=== PATIENT | male | born 1970 | race Caucasian/White ===

== ENCOUNTER 2017-06-27 07:06 | Day surgery (SDC) | payer OTHER ==
[2017-06-26 09:24] VITALS: BMI 22.8
[2017-06-27 07:29] VITALS: TEMP 97.6
[2017-06-27] MEDS ORDERED: PROPOFOL 20 ML ONE (08:58)
[2017-06-27] MEDS ORDERED: LIDOCAINE HCL 1% PRESERVATIVE FREE - 30ML VIAL IJ ONE (09:10)
[2017-06-27] MEDS ORDERED: BETAMET ACET/BETAMET NA PH 30 MG/5 ML VIAL IM ONE (09:10)
[2017-06-27] MEDS ORDERED: IOHEXOL 180 MG/1 ML ML IJ ONE (09:10)
[2017-06-27] MEDS ORDERED: BUPIVACAINE HCL/PF 0.25% (2.5MG/ML) 10 ML VIAL IJ ONE (09:10)
[2017-06-27 10:28] VITALS: BP 122/74; PULSE 77
--- NOTE | 2017-06-27 15:00 | PROC ---
Procedure Note Procedure: Date of service: 06/27/2017 Preoperative Diagnosis: Low back pain and lumbar radiculopathy on Left Postoperative Diagnosis: Same Procedure Performed: Lumbar Epidural Steroid Injection (LESI) on Left L5-S1 with dye under Fluoroscopy Anesthesia: Local / MAC Anesthesiologist: Procedure: I discussed with the patient in detail about the risks, benefits, and alternatives to treatment not only limited to infection, headache, numbness , weakness, and injury to nerves, blood vessels and muscles. The patient understood, agreed and signed the written consent. The patient was placed in the prone position with the head, abdomen and legs supported with the pillows. The lumbosacral area was prepped and draped with Betadine times three in a sterile fashion. Lumbar vertebrae were identified under the C-arm. At L5-S1 level on the Left side, 3 ml of 1 % Lidocaine was infiltrated into the skin and subcutaneous tissue. A 3 inch, #20 gauge Tuohy needle was advanced to the epidural space with loss of resistance technique under fluoroscopic guidance. Aspiration was negative for cerebrospinal fluid and blood. 2ml of Omnipaque ( radio-opaque dye) was injected to confirm the tip of the needle into epidural space and spread of dye. There was no CSF or vascular spread. The spread of dye was noted cranially and caudally on epidurogram. Aspiration was done again which was negative. A solution of 2.5 ml of Celestone, 2 .5 ml of 0.25% Marcaine and a total of 5 ml was injected slowly. While Tuohy needle was withdrawn 2.0 ml of 1 % Lidocaine was infiltrated. Bleeding was checked. Betadine was wiped off. A sterile bandage was placed. The patient tolerated the procedure well. There were no immediate complications. The patient was transferred to the recovery room. The patient was observed for some time and discharged as per ASU criteria. The patient was told to apply ice at the injection site. Follow up appointment was given and also call my office at . If there is any problem, call my office or report to Emergency Room. Aly Castro M.D.
== END 2017-06-27 10:25 | disposition home or self-care (01) ==
LOC: JASU-SURG 07:06
PROVIDERS: ATTEND Physical Medicine & Rehabilitation
PROC: 3E0R33Z Introduction of Anti-inflammatory into Spinal Canal, Percutaneous Approach (ICD-10-PCS; 2017-06-27)
PROC: B01BYZZ Fluoroscopy of Spinal Cord using Other Contrast (ICD-10-PCS; 2017-06-27)
PROC: 3E0R3BZ Introduction of Anesthetic Agent into Spinal Canal, Percutaneous Approach (ICD-10-PCS; principal; 2017-06-27 08:30)
DX: M54.17 Radiculopathy, lumbosacral region (principal); M54.5 Low back pain
CPT/HCPCS: 76000-TC

== ENCOUNTER 2020-06-12 06:05 | Day surgery (SDC) | payer OTHER ==
[2020-06-11 13:50] VITALS: BMI 22.6
[2020-06-12] MEDS ORDERED: IOHEXOL 180 MG/1 ML ML IJ ONE (14:10)
[2020-06-12] MEDS ORDERED: LIDOCAINE HCL 1% PRESERVATIVE FREE - 30ML VIAL INF ONE (14:10)
[2020-06-12] MEDS ORDERED: DEXAMETHASONE SOD PHOSPHATE 10 MG/1 ML VIAL IM ONE (14:10)
[2020-06-12 15:11] VITALS: BP 135/89; PULSE 71; TEMP 98
== END 2020-06-12 14:45 | disposition home or self-care (01) ==
LOC: JASU-SURG 06:05
PROVIDERS: ATTEND Pain Medicine Pain Medicine
PROC: 3E0R33Z Introduction of Anti-inflammatory into Spinal Canal, Percutaneous Approach (ICD-10-PCS; 2020-06-12)
PROC: B01BYZZ Fluoroscopy of Spinal Cord using Other Contrast (ICD-10-PCS; 2020-06-12)
PROC: 3E0R3BZ Introduction of Anesthetic Agent into Spinal Canal, Percutaneous Approach (ICD-10-PCS; principal; 2020-06-12 14:00)
DX: M47.816 Spondylosis without myelopathy or radiculopathy, lumbar region (principal)
CPT/HCPCS: 76000-TC-FY; J1100

== ENCOUNTER 2020-11-02 04:21 | Day surgery (SDC) | payer OTHER ==
[2020-10-30 09:21] VITALS: BMI 24.2
[2020-11-02 14:16] VITALS: TEMP 98.9
[2020-11-02] MEDS ORDERED: ACETAMINOPHEN 325 MG TABLET (FP) ONE (15:14)
[2020-11-02 15:19] VITALS: BP 136/83; PULSE 75
== END 2020-11-02 15:45 | disposition home or self-care (01) ==
LOC: JRADIR 04:21
PROVIDERS: ATTEND Family Medicine Geriatric Medicine
PROC: 0BBF3ZX Excision of Right Lower Lung Lobe, Percutaneous Approach, Diagnostic (ICD-10-PCS; principal; 2020-11-02)
DX: C34.31 Malignant neoplasm of lower lobe, right bronchus or lung (principal)
CPT/HCPCS: 32408; 71046-TC-FY; 88305-TC

== ENCOUNTER 2021-04-02 07:15 | Day surgery (SDC) | payer OTHER ==
[2021-04-02 13:04] LABS: BASO % 0.6 % (0-2.0); EOS % 3.1 % (0-4.5); HEMATOCRIT 37.7 % (35.4-49); MCH 34.3 pg (25.7-33.7); MCHC 34.4 g/dl (32.0-35.9); MEAN CELL VOLUME 99.8 fl (80-96); MEAN PLT VOLUME 7.2 fl (7.5-11.1); MONO % 11.1 % (3.8-10.2); NEUT % 64.2 % (42.8-82.8); PLATELET COUNT 231 10^3/uL (134-434); RBC 3.77 M/mm3 (4.00-5.60); RDW 12.9 % (11.9-15.9); WHITE BLOOD COUNT 9.3 K/mm3 (4.0-10.0)
[2021-04-02 13:24] LABS: CALCIUM 9.4 mg/dL (8.5-10.1)
[2021-04-02 13:25] LABS: ALBUMIN 3.6 g/dl (3.4-5.0); BLOOD UREA NITROGEN 7.4 mg/dL (7-18)
[2021-04-02 13:28] LABS: CREATININE 0.8 mg/dL (0.55-1.3)
[2021-04-02 13:30] LABS: BILIRUBIN,TOTAL 0.6 mg/dL (0.2-1)
[2021-04-02 13:54] LABS: MAGNESIUM 2.1 mg/dL (1.8-2.4)
[2021-04-02] MEDS ORDERED: DENOSUMAB 120 MG/1.7 ML VIAL SQ ONE (14:00)
[2021-04-02 16:13] VITALS: BP 109/71; PULSE 73; TEMP 98.3
== END 2021-04-02 14:20 | disposition home or self-care (01) ==
LOC: JONCCHEMO 07:15
PROVIDERS: ATTEND Internal Medicine Hematology & Oncology
PROC: 3E013GC Introduction of Other Therapeutic Substance into Subcutaneous Tissue, Percutaneous Approach (ICD-10-PCS; principal; 2021-04-02)
DX: C34.31 Malignant neoplasm of lower lobe, right bronchus or lung (principal); C79.31 Secondary malignant neoplasm of brain; Z76.89 Persons encountering health services in other specified circumstances
CPT/HCPCS: 36415; 80053; 83735; 85025; 96372; J0897

== ENCOUNTER → 2021-05-19 | Day surgery (SDC) | payer OTHER ==
[~2021-05-19] MED LIST: DENOSUMAB 120 MG/1.7 ML VIAL SQ ONE
[2021-05-19 11:50] LABS: BASO % 0.4 % (0-2.0); EOS % 5.7 % (0-4.5); HEMATOCRIT 37.2 % (35.4-49); HEMOGLOBIN 12.6 GM/dL (11.7-16.9); LYMPH % 26.1 % (8-40); MCH 32.1 pg (25.7-33.7); MCHC 33.8 g/dl (32.0-35.9); MEAN PLT VOLUME 7.5 fl (7.5-11.1); MONO % 13.3 % (3.8-10.2); NEUT % 54.5 % (42.8-82.8); PLATELET COUNT 269 10^3/uL (134-434); RBC 3.91 M/mm3 (4.00-5.60); RDW 13.7 % (11.9-15.9); WHITE BLOOD COUNT 7.7 K/mm3 (4.0-10.0)
[2021-05-19 12:07] LABS: CALCIUM 8.8 mg/dL (8.5-10.1)
[2021-05-19 12:08] LABS: ALBUMIN 3.1 g/dl (3.4-5.0); BLOOD UREA NITROGEN 8.4 mg/dL (7-18)
[2021-05-19 12:11] LABS: CREATININE 0.7 mg/dL (0.55-1.3)
[2021-05-19 12:13] LABS: BILIRUBIN,TOTAL 0.6 mg/dL (0.2-1)
== END | disposition home or self-care (01) ==
LOC: JONCCHEMO 07:28
PROVIDERS: ATTEND Internal Medicine Hematology & Oncology
DX: Z53.8 Procedure and treatment not carried out for other reasons (principal)
CPT/HCPCS: 36415; 80053; 85025; 93005; 93010

== ENCOUNTER 2021-06-09 10:06 | Day surgery (SDC) | payer OTHER ==
[2021-06-09 10:53] LABS: BASO % 0.7 % (0-2.0); EOS % 4.2 % (0-4.5); HEMATOCRIT 37.2 % (35.4-49); HEMOGLOBIN 12.6 GM/dL (11.7-16.9); LYMPH % 24.6 % (8-40); MEAN CELL VOLUME 94.2 fl (80-96); MEAN PLT VOLUME 7.5 fl (7.5-11.1); MONO % 13.6 % (3.8-10.2); NEUT % 56.9 % (42.8-82.8); PLATELET COUNT 283 10^3/uL (134-434); RBC 3.95 M/mm3 (4.00-5.60); RDW 14.5 % (11.9-15.9); WHITE BLOOD COUNT 9.6 K/mm3 (4.0-10.0)
[2021-06-09 11:18] LABS: BLOOD UREA NITROGEN 7.9 mg/dL (7-18); CALCIUM 8.7 mg/dL (8.5-10.1)
[2021-06-09 11:19] LABS: ALBUMIN 3.2 g/dl (3.4-5.0)
[2021-06-09 11:21] LABS: CREATININE 0.7 mg/dL (0.55-1.3)
[2021-06-09 11:23] LABS: BILIRUBIN,TOTAL 0.4 mg/dL (0.2-1)
[2021-06-09] MEDS ORDERED: DENOSUMAB 120 MG/1.7 ML VIAL SQ ONE (11:30)
[2021-06-09 15:56] VITALS: BP 98/63; PULSE 74
[2021-06-09 15:57] VITALS: TEMP 98
== END 2021-06-09 12:40 | disposition home or self-care (01) ==
LOC: JONCCHEMO 10:06 → EDSTATUS 10:06 → JONCCHEMO 12:40
PROVIDERS: ATTEND Internal Medicine Hematology & Oncology
PROC: 3E013GC Introduction of Other Therapeutic Substance into Subcutaneous Tissue, Percutaneous Approach (ICD-10-PCS; principal; 2021-06-09)
DX: C34.31 Malignant neoplasm of lower lobe, right bronchus or lung (principal); C79.31 Secondary malignant neoplasm of brain; Z76.89 Persons encountering health services in other specified circumstances
CPT/HCPCS: 36415; 80053; 83615; 83735; 84439; 84443; 85025; 87517; 96372; J0897

== ENCOUNTER 2021-07-07 07:08 | Day surgery (SDC) | payer OTHER ==
[2021-07-07] MEDS ORDERED: DENOSUMAB 120 MG/1.7 ML VIAL SQ ONE (10:00)
[2021-07-07 14:44] LABS: BASO % 0.7 % (0-2.0); EOS % 5.1 % (0-4.5); HEMATOCRIT 37.9 % (35.4-49); HEMOGLOBIN 12.9 GM/dL (11.7-16.9); LYMPH % 27.4 % (8-40); MCH 31.6 pg (25.7-33.7); MEAN CELL VOLUME 92.9 fl (80-96); MEAN PLT VOLUME 7.7 fl (7.5-11.1); MONO % 8.9 % (3.8-10.2); NEUT % 57.9 % (42.8-82.8); PLATELET COUNT 241 10^3/uL (134-434); RBC 4.08 M/mm3 (4.00-5.60); RDW 14.4 % (11.9-15.9); WHITE BLOOD COUNT 7.6 K/mm3 (4.0-10.0)
[2021-07-07 15:08] LABS: ALBUMIN 3.6 g/dl (3.4-5.0); BLOOD UREA NITROGEN 6.2 mg/dL (7-18); CALCIUM 8.8 mg/dL (8.5-10.1)
[2021-07-07 15:12] LABS: CREATININE 0.8 mg/dL (0.55-1.3)
[2021-07-07 15:13] LABS: BILIRUBIN,TOTAL 0.8 mg/dL (0.2-1)
[2021-07-07 19:23] VITALS: BP 97/70; PULSE 68; TEMP 97.8
== END 2021-07-07 14:30 | disposition home or self-care (01) ==
LOC: JONCCHEMO 07:08
PROVIDERS: ATTEND Internal Medicine Hematology & Oncology
PROC: 3E013GC Introduction of Other Therapeutic Substance into Subcutaneous Tissue, Percutaneous Approach (ICD-10-PCS; principal; 2021-07-07)
DX: C34.31 Malignant neoplasm of lower lobe, right bronchus or lung (principal); C79.31 Secondary malignant neoplasm of brain; Z76.89 Persons encountering health services in other specified circumstances
CPT/HCPCS: 36415; 80053; 85025; 96372; J0897

== ENCOUNTER 2021-08-04 07:18 | Day surgery (SDC) | payer OTHER ==
[2021-08-04] MEDS ORDERED: DENOSUMAB 120 MG/1.7 ML VIAL SQ ONE (10:00)
[2021-08-04 12:11] LABS: BASO % 0.7 % (0-2.0); EOS % 3.2 % (0-4.5); HEMOGLOBIN 13.3 GM/dL (11.7-16.9); LYMPH % 37.8 % (8-40); MCH 31.3 pg (25.7-33.7); MCHC 34.2 g/dl (32.0-35.9); MEAN CELL VOLUME 91.7 fl (80-96); MEAN PLT VOLUME 7.1 fl (7.5-11.1); MONO % 10.2 % (3.8-10.2); NEUT % 48.1 % (42.8-82.8); PLATELET COUNT 275 10^3/uL (134-434); RBC 4.26 M/mm3 (4.00-5.60); RDW 14.9 % (11.9-15.9); WHITE BLOOD COUNT 7.2 K/mm3 (4.0-10.0)
[2021-08-04 12:31] LABS: ALBUMIN 3.5 g/dl (3.4-5.0); BLOOD UREA NITROGEN 5.1 mg/dL (7-18); CALCIUM 9.3 mg/dL (8.5-10.1)
[2021-08-04 12:35] LABS: CREATININE 0.6 mg/dL (0.55-1.3)
[2021-08-04 12:36] LABS: BILIRUBIN,TOTAL 0.6 mg/dL (0.2-1)
[2021-08-04 18:30] VITALS: BP 95/72; PULSE 73; TEMP 97.7
== END 2021-08-04 12:00 | disposition home or self-care (01) ==
LOC: JONCCHEMO 07:18
PROVIDERS: ATTEND Internal Medicine Hematology & Oncology
PROC: 3E013GC Introduction of Other Therapeutic Substance into Subcutaneous Tissue, Percutaneous Approach (ICD-10-PCS; principal; 2021-08-04)
DX: C34.31 Malignant neoplasm of lower lobe, right bronchus or lung (principal); Z76.89 Persons encountering health services in other specified circumstances
CPT/HCPCS: 36415; 80053; 85025; 96372; J0897

== ENCOUNTER 2021-09-01 07:35 | Day surgery (SDC) | payer OTHER ==
[2021-09-01] MEDS ORDERED: DENOSUMAB 120 MG/1.7 ML VIAL SQ ONE (10:00)
[2021-09-01 11:25] LABS: BASO % 0.4 % (0-2.0); EOS % 2.6 % (0-4.5); HEMATOCRIT 39.9 % (35.4-49); HEMOGLOBIN 13.6 GM/dL (11.7-16.9); LYMPH % 24.8 % (8-40); MCH 31.2 pg (25.7-33.7); MEAN CELL VOLUME 91.9 fl (80-96); MEAN PLT VOLUME 7.6 fl (7.5-11.1); MONO % 12.9 % (3.8-10.2); NEUT % 59.3 % (42.8-82.8); PLATELET COUNT 237 10^3/uL (134-434); RBC 4.34 M/mm3 (4.00-5.60); RDW 14.7 % (11.9-15.9); WHITE BLOOD COUNT 8.5 K/mm3 (4.0-10.0)
[2021-09-01 11:56] LABS: CALCIUM 9.4 mg/dL (8.5-10.1)
[2021-09-01 11:57] LABS: ALBUMIN 3.7 g/dl (3.4-5.0)
[2021-09-01 12:00] LABS: CREATININE 0.8 mg/dL (0.55-1.3)
[2021-09-01 12:02] LABS: BILIRUBIN,TOTAL 0.5 mg/dL (0.2-1); TOT PROT 7.3 g/dl (6.4-8.2)
[2021-09-01 16:19] VITALS: BP 97/74; PULSE 72; TEMP 98.5
== END 2021-09-01 12:45 | disposition home or self-care (01) ==
LOC: JONCCHEMO 07:35
PROVIDERS: ATTEND Internal Medicine Hematology & Oncology
PROC: 3E013GC Introduction of Other Therapeutic Substance into Subcutaneous Tissue, Percutaneous Approach (ICD-10-PCS; principal; 2021-09-01)
DX: C34.31 Malignant neoplasm of lower lobe, right bronchus or lung (principal); C79.51 Secondary malignant neoplasm of bone; C79.31 Secondary malignant neoplasm of brain; Z72.0 Tobacco use
CPT/HCPCS: 36415; 80053; 85025; 87517; 96372; J0897

== ENCOUNTER 2021-09-29 07:48 | Day surgery (SDC) | payer OTHER ==
[2021-09-29] MEDS ORDERED: DENOSUMAB 120 MG/1.7 ML VIAL SQ ONE (10:00)
[2021-09-29 12:17] LABS: BASO % 0.5 % (0-2.0); EOS % 3.5 % (0-4.5); HEMATOCRIT 37.8 % (35.4-49); HEMOGLOBIN 12.8 GM/dL (11.7-16.9); LYMPH % 25.7 % (8-40); MCH 31.3 pg (25.7-33.7); MCHC 33.8 g/dl (32.0-35.9); MEAN CELL VOLUME 92.8 fl (80-96); MEAN PLT VOLUME 7.6 fl (7.5-11.1); NEUT % 61.3 % (42.8-82.8); PLATELET COUNT 240 10^3/uL (134-434); RBC 4.08 M/mm3 (4.00-5.60); RDW 14.4 % (11.9-15.9); WHITE BLOOD COUNT 8.4 K/mm3 (4.0-10.0)
[2021-09-29 12:41] LABS: CALCIUM 9.2 mg/dL (8.5-10.1)
[2021-09-29 12:42] LABS: ALBUMIN 3.9 g/dl (3.4-5.0); BLOOD UREA NITROGEN 8.5 mg/dL (7-18)
[2021-09-29 12:45] LABS: CREATININE 0.7 mg/dL (0.55-1.3)
[2021-09-29 12:46] LABS: BILIRUBIN,TOTAL 0.7 mg/dL (0.2-1)
[2021-09-29 12:47] LABS: TOT PROT 7.3 g/dl (6.4-8.2)
[2021-09-29 16:32] VITALS: BP 104/74; PULSE 84; TEMP 98
== END 2021-09-29 13:30 | disposition home or self-care (01) ==
LOC: JONCCHEMO 07:48
PROVIDERS: ATTEND Internal Medicine Hematology & Oncology
PROC: 3E013GC Introduction of Other Therapeutic Substance into Subcutaneous Tissue, Percutaneous Approach (ICD-10-PCS; principal; 2021-09-29)
DX: C34.31 Malignant neoplasm of lower lobe, right bronchus or lung (principal); Z76.89 Persons encountering health services in other specified circumstances
CPT/HCPCS: 36415; 80053; 85025; 87517; 96372; J0897

== ENCOUNTER 2021-10-27 07:27 | Day surgery (SDC) | payer OTHER ==
[2021-10-27] MEDS ORDERED: DENOSUMAB 120 MG/1.7 ML VIAL SQ ONE (10:00)
[2021-10-27 11:34] LABS: BASO % 0.5 % (0-2.0); EOS % 3.5 % (0-4.5); HEMATOCRIT 37.1 % (35.4-49); HEMOGLOBIN 12.8 GM/dL (11.7-16.9); LYMPH % 23.2 % (8-40); MCHC 34.6 g/dl (32.0-35.9); MEAN CELL VOLUME 92.5 fl (80-96); MEAN PLT VOLUME 6.9 fl (7.5-11.1); MONO % 10.4 % (3.8-10.2); NEUT % 62.4 % (42.8-82.8); PLATELET COUNT 246 10^3/uL (134-434); RBC 4.01 M/mm3 (4.00-5.60); RDW 14.3 % (11.9-15.9); WHITE BLOOD COUNT 9.6 K/mm3 (4.0-10.0)
[2021-10-27 12:00] LABS: ALBUMIN 3.4 g/dl (3.4-5.0); BLOOD UREA NITROGEN 8.3 mg/dL (7-18); CALCIUM 9.1 mg/dL (8.5-10.1)
[2021-10-27 12:03] LABS: CREATININE 0.7 mg/dL (0.55-1.3)
[2021-10-27 12:05] LABS: BILIRUBIN,TOTAL 0.5 mg/dL (0.2-1)
[2021-10-27 16:51] VITALS: BP 112/74; PULSE 68; TEMP 98
== END 2021-10-27 13:15 | disposition home or self-care (01) ==
LOC: JONCCHEMO 07:27
PROVIDERS: ATTEND Internal Medicine Hematology & Oncology
PROC: 3E013GC Introduction of Other Therapeutic Substance into Subcutaneous Tissue, Percutaneous Approach (ICD-10-PCS; principal; 2021-10-27)
DX: C34.31 Malignant neoplasm of lower lobe, right bronchus or lung (principal); Z76.89 Persons encountering health services in other specified circumstances
CPT/HCPCS: 36415; 80053; 85025; 96372; J0897

== ENCOUNTER 2021-12-10 07:25 | Day surgery (SDC) | payer OTHER ==
[2021-12-10] MEDS ORDERED: DENOSUMAB 120 MG/1.7 ML VIAL SQ ONE (10:00)
[2021-12-10 11:29] VITALS: BP 108/78; PULSE 83; TEMP 98.4
[2021-12-10 11:52] LABS: BASO % 0.5 % (0-2.0); EOS % 1.6 % (0-4.5); HEMATOCRIT 40.6 % (35.4-49); HEMOGLOBIN 13.8 GM/dL (11.7-16.9); LYMPH % 13.1 % (8-40); MCH 31.9 pg (25.7-33.7); MEAN CELL VOLUME 93.8 fl (80-96); MEAN PLT VOLUME 7.7 fl (7.5-11.1); MONO % 10.7 % (3.8-10.2); NEUT % 74.1 % (42.8-82.8); PLATELET COUNT 242 10^3/uL (134-434); RBC 4.33 M/mm3 (4.00-5.60); RDW 14.4 % (11.9-15.9); WHITE BLOOD COUNT 10.5 K/mm3 (4.0-10.0)
[2021-12-10 12:25] LABS: ALBUMIN 3.9 g/dl (3.4-5.0); BLOOD UREA NITROGEN 12.5 mg/dL (7-18)
[2021-12-10 12:28] LABS: CREATININE 0.8 mg/dL (0.55-1.3)
[2021-12-10 12:29] LABS: BILIRUBIN,TOTAL 0.5 mg/dL (0.2-1); TOT PROT 7.4 g/dl (6.4-8.2)
== END 2021-12-10 11:40 | disposition home or self-care (01) ==
LOC: JONCCHEMO 07:25
PROVIDERS: ATTEND Internal Medicine Hematology & Oncology
PROC: 3E013GC Introduction of Other Therapeutic Substance into Subcutaneous Tissue, Percutaneous Approach (ICD-10-PCS; principal; 2021-12-10)
DX: C34.31 Malignant neoplasm of lower lobe, right bronchus or lung (principal); Z76.89 Persons encountering health services in other specified circumstances
CPT/HCPCS: 36415; 80053; 85025; 96372; J0897

== ENCOUNTER 2022-01-07 07:04 | Day surgery (SDC) | payer OTHER ==
[2022-01-07] MEDS ORDERED: DENOSUMAB 120 MG/1.7 ML VIAL SQ ONE (10:00)
[2022-01-07 10:35] LABS: BASO % 0.5 % (0-2.0); EOS % 2.6 % (0-4.5); HEMATOCRIT 38.8 % (35.4-49); HEMOGLOBIN 13.2 GM/dL (11.7-16.9); LYMPH % 28.4 % (8-40); MCH 31.8 pg (25.7-33.7); MCHC 34.1 g/dl (32.0-35.9); MEAN CELL VOLUME 93.2 fl (80-96); MEAN PLT VOLUME 7.7 fl (7.5-11.1); NEUT % 58.5 % (42.8-82.8); PLATELET COUNT 229 10^3/uL (134-434); RBC 4.17 M/mm3 (4.00-5.60); RDW 14.2 % (11.9-15.9); WHITE BLOOD COUNT 9.6 K/mm3 (4.0-10.0)
[2022-01-07 10:55] LABS: BLOOD UREA NITROGEN 7.9 mg/dL (7-18)
[2022-01-07 10:56] LABS: CALCIUM 8.8 mg/dL (8.5-10.1)
[2022-01-07 10:57] LABS: ALBUMIN 3.7 g/dl (3.4-5.0)
[2022-01-07 11:00] LABS: CREATININE 0.8 mg/dL (0.55-1.3)
[2022-01-07 11:01] LABS: BILIRUBIN,TOTAL 0.6 mg/dL (0.2-1); TOT PROT 6.9 g/dl (6.4-8.2)
[2022-01-07 11:41] VITALS: BP 97/68; PULSE 71; TEMP 98.2
== END 2022-01-07 11:55 | disposition home or self-care (01) ==
LOC: JONCCHEMO 07:04
PROVIDERS: ATTEND Internal Medicine Hematology & Oncology
PROC: 3E013GC Introduction of Other Therapeutic Substance into Subcutaneous Tissue, Percutaneous Approach (ICD-10-PCS; principal; 2022-01-07)
DX: Z76.89 Persons encountering health services in other specified circumstances (principal); C34.91 Malignant neoplasm of unspecified part of right bronchus or lung
CPT/HCPCS: 36415; 80053; 82105; 84439; 84443; 85025; 87517; 96372; J0897

== ENCOUNTER → 2022-02-11 | Day surgery (SDC) | payer OTHER ==
[2022-02-11 16:47] LABS: BASO % 0.4 % (0-2.0); HEMATOCRIT 38.8 % (35.4-49); HEMOGLOBIN 13.5 GM/dL (11.7-16.9); LYMPH % 27.5 % (8-40); MCH 32.5 pg (25.7-33.7); MCHC 34.7 g/dl (32.0-35.9); MEAN CELL VOLUME 93.4 fl (80-96); MEAN PLT VOLUME 7.4 fl (7.5-11.1); MONO % 9.2 % (3.8-10.2); NEUT % 59.9 % (42.8-82.8); PLATELET COUNT 214 10^3/uL (134-434); RBC 4.16 M/mm3 (4.00-5.60); RDW 14.3 % (11.9-15.9); WHITE BLOOD COUNT 9.7 K/mm3 (4.0-10.0)
[2022-02-11 17:04] VITALS: BP 111/70; PULSE 73; RESP 18; TEMP 98.3
[2022-02-11 17:06] LABS: ALBUMIN 3.7 g/dl (3.4-5.0); BLOOD UREA NITROGEN 8.6 mg/dL (7-18)
[2022-02-11 17:09] LABS: CREATININE 0.8 mg/dL (0.55-1.3)
[2022-02-11 17:10] LABS: BILIRUBIN,TOTAL 0.6 mg/dL (0.2-1)
[2022-02-11 17:11] LABS: TOT PROT 7.1 g/dl (6.4-8.2)
== END | disposition home or self-care (01) ==
LOC: JONCCHEMO 07:00
PROVIDERS: ATTEND Internal Medicine Hematology & Oncology
PROC: 3E013GC Introduction of Other Therapeutic Substance into Subcutaneous Tissue, Percutaneous Approach (ICD-10-PCS; principal; 2022-02-11)
DX: C34.91 Malignant neoplasm of unspecified part of right bronchus or lung (principal); Z76.89 Persons encountering health services in other specified circumstances
CPT/HCPCS: 36415; 80053; 85025; 87517; 96372; J0897

== ENCOUNTER 2022-03-07 07:21 | Day surgery (SDC) | payer OTHER ==
[2022-03-07] MEDS ORDERED: DENOSUMAB 120 MG/1.7 ML VIAL SQ ONE (10:00)
[2022-03-07 10:47] LABS: EOS % 3.4 % (0-4.5); HEMATOCRIT 39.6 % (35.4-49); HEMOGLOBIN 13.3 GM/dL (11.7-16.9); LYMPH % 24.5 % (8-40); MCH 31.8 pg (25.7-33.7); MCHC 33.5 g/dl (32.0-35.9); MEAN CELL VOLUME 94.9 fl (80-96); MEAN PLT VOLUME 7.8 fl (7.5-11.1); NEUT % 61.7 % (42.8-82.8); PLATELET COUNT 246 10^3/uL (134-434); RBC 4.17 M/mm3 (4.00-5.60); RDW 14.2 % (11.9-15.9)
[2022-03-07 10:48] LABS: BASO % 0.4 % (0-2.0)
[2022-03-07 11:04] LABS: ALBUMIN 3.7 g/dl (3.4-5.0); BLOOD UREA NITROGEN 10.6 mg/dL (7-18)
[2022-03-07 11:06] LABS: BILIRUBIN,DIRECT 0.2 mg/dL (0.0-0.2)
[2022-03-07 11:07] LABS: CREATININE 0.6 mg/dL (0.55-1.3); TOT PROT 7.2 g/dl (6.4-8.2)
[2022-03-07 11:08] LABS: BILIRUBIN,TOTAL 0.5 mg/dL (0.2-1)
[2022-03-07 11:40] VITALS: BP 105/74; PULSE 72; RESP 18; TEMP 98
== END 2022-03-07 10:45 | disposition home or self-care (01) ==
LOC: JONCCHEMO 07:21
PROVIDERS: ATTEND Internal Medicine Hematology & Oncology
PROC: 3E013GC Introduction of Other Therapeutic Substance into Subcutaneous Tissue, Percutaneous Approach (ICD-10-PCS; principal; 2022-03-07)
DX: C34.91 Malignant neoplasm of unspecified part of right bronchus or lung (principal); Z76.89 Persons encountering health services in other specified circumstances
CPT/HCPCS: 36415; 80048; 80076; 83735; 85025; 87517; 96372; J0897

== ENCOUNTER 2022-04-05 08:56 | Day surgery (SDC) | payer OTHER ==
[2022-04-05 09:44] LABS: BASO % 0.3 % (0-2.0); EOS % 2.9 % (0-4.5); HEMATOCRIT 41.7 % (35.4-49); HEMOGLOBIN 14.5 GM/dL (11.7-16.9); LYMPH % 16.3 % (8-40); MCHC 34.7 g/dl (32.0-35.9); MEAN CELL VOLUME 95.1 fl (80-96); MEAN PLT VOLUME 7.7 fl (7.5-11.1); MONO % 9.9 % (3.8-10.2); NEUT % 70.6 % (42.8-82.8); PLATELET COUNT 247 10^3/uL (134-434); RBC 4.39 M/mm3 (4.00-5.60); RDW 14.5 % (11.9-15.9); WHITE BLOOD COUNT 11.6 K/mm3 (4.0-10.0)
[2022-04-05] MEDS ORDERED: DENOSUMAB 120 MG/1.7 ML VIAL SQ ONE (10:00)
[2022-04-05 10:09] LABS: ALBUMIN 3.9 g/dl (3.4-5.0); CALCIUM 9.6 mg/dL (8.5-10.1)
[2022-04-05 10:10] LABS: BLOOD UREA NITROGEN 7.7 mg/dL (7-18)
[2022-04-05 10:13] LABS: BILIRUBIN,DIRECT 0.2 mg/dL (0.0-0.2); CREATININE 0.7 mg/dL (0.55-1.3)
[2022-04-05 10:14] LABS: BILIRUBIN,TOTAL 0.6 mg/dL (0.2-1); TOT PROT 7.5 g/dl (6.4-8.2)
[2022-04-05 15:43] VITALS: BP 124/94; PULSE 86; RESP 20; TEMP 98.2
== END 2022-04-05 10:00 | disposition home or self-care (01) ==
LOC: JONCCHEMO 08:56
PROVIDERS: ATTEND Internal Medicine Hematology & Oncology
PROC: 3E013GC Introduction of Other Therapeutic Substance into Subcutaneous Tissue, Percutaneous Approach (ICD-10-PCS; principal; 2022-04-05)
DX: C34.91 Malignant neoplasm of unspecified part of right bronchus or lung (principal); Z76.89 Persons encountering health services in other specified circumstances
CPT/HCPCS: 36415; 80048; 80076; 82378; 83735; 85025; 96372; J0897

== ENCOUNTER 2022-05-02 10:38 | Day surgery (SDC) | payer OTHER ==
[2022-05-02 11:17] LABS: BASO % 0.6 % (0-2.0); EOS % 3.2 % (0-4.5); HEMOGLOBIN 13.4 GM/dL (11.7-16.9); LYMPH % 23.5 % (8-40); MCH 32.5 pg (25.7-33.7); MCHC 34.3 g/dl (32.0-35.9); MEAN CELL VOLUME 94.9 fl (80-96); MEAN PLT VOLUME 7.2 fl (7.5-11.1); MONO % 10.9 % (3.8-10.2); NEUT % 61.8 % (42.8-82.8); PLATELET COUNT 239 10^3/uL (134-434); RBC 4.11 M/mm3 (4.00-5.60); RDW 13.9 % (11.9-15.9); WHITE BLOOD COUNT 8.8 K/mm3 (4.0-10.0)
[2022-05-02 11:35] LABS: BLOOD UREA NITROGEN 8.9 mg/dL (7-18); CALCIUM 8.9 mg/dL (8.5-10.1); MAGNESIUM 2.1 mg/dL (1.8-2.4)
[2022-05-02 11:37] LABS: ALBUMIN 3.6 g/dl (3.4-5.0)
[2022-05-02 11:39] LABS: BILIRUBIN,DIRECT 0.1 mg/dL (0.0-0.2)
[2022-05-02 11:40] LABS: BILIRUBIN,TOTAL 0.4 mg/dL (0.2-1); CREATININE 0.7 mg/dL (0.55-1.3)
[2022-05-02 11:42] LABS: TOT PROT 7.2 g/dl (6.4-8.2)
[2022-05-02 16:29] VITALS: BP 94/66; PULSE 73; RESP 18; TEMP 98.2
== END 2022-05-02 11:20 | disposition home or self-care (01) ==
LOC: JONCCHEMO 10:38
PROVIDERS: ATTEND Internal Medicine Hematology & Oncology
DX: C34.91 Malignant neoplasm of unspecified part of right bronchus or lung (principal); Z76.89 Persons encountering health services in other specified circumstances
CPT/HCPCS: 36415; 80048; 80076; 82378; 83735; 85025; 96372; J0897

== ENCOUNTER 2022-05-30 09:49 | Day surgery (SDC) | payer OTHER ==
[2022-05-30] MEDS ORDERED: DENOSUMAB 120 MG/1.7 ML VIAL SQ ONE (10:00)
[2022-05-30 10:48] LABS: BASO % 0.6 % (0-2.0); EOS % 3.2 % (0-4.5); HEMATOCRIT 40.9 % (35.4-49); HEMOGLOBIN 13.6 GM/dL (11.7-16.9); LYMPH % 23.2 % (8-40); MCH 31.5 pg (25.7-33.7); MCHC 33.3 g/dl (32.0-35.9); MEAN CELL VOLUME 94.5 fl (80-96); MEAN PLT VOLUME 7.6 fl (7.5-11.1); MONO % 11.8 % (3.8-10.2); NEUT % 61.2 % (42.8-82.8); PLATELET COUNT 261 10^3/uL (134-434); RBC 4.33 M/mm3 (4.00-5.60); RDW 13.8 % (11.9-15.9); WHITE BLOOD COUNT 9.4 K/mm3 (4.0-10.0)
[2022-05-30 11:00] LABS: ALBUMIN 3.6 g/dl (3.4-5.0); BLOOD UREA NITROGEN 6.5 mg/dL (7-18); CALCIUM 9.1 mg/dL (8.5-10.1)
[2022-05-30 11:04] LABS: BILIRUBIN,DIRECT 0.2 mg/dL (0.0-0.2); CREATININE 0.8 mg/dL (0.55-1.3)
[2022-05-30 11:05] LABS: BILIRUBIN,TOTAL 0.5 mg/dL (0.2-1); TOT PROT 7.2 g/dl (6.4-8.2)
[2022-05-30 14:49] VITALS: BP 100/61; PULSE 84; RESP 18; TEMP 97.7
== END 2022-05-30 11:05 | disposition home or self-care (01) ==
LOC: JONCCHEMO 09:49
PROVIDERS: ATTEND Internal Medicine Hematology & Oncology
PROC: 3E013GC Introduction of Other Therapeutic Substance into Subcutaneous Tissue, Percutaneous Approach (ICD-10-PCS; principal; 2022-05-30)
DX: C34.91 Malignant neoplasm of unspecified part of right bronchus or lung (principal); Z76.89 Persons encountering health services in other specified circumstances
CPT/HCPCS: 36415; 80048; 80076; 82378; 83735; 85025; 96372; J0897

== ENCOUNTER 2022-06-27 10:00 | Day surgery (SDC) | payer OTHER ==
[2022-06-27] MEDS ORDERED: DENOSUMAB 120 MG/1.7 ML VIAL SQ ONE (10:30)
[2022-06-27 11:41] LABS: BASO % 0.5 % (0-2.0); EOS % 2.2 % (0-4.5); HEMATOCRIT 44.2 % (35.4-49); HEMOGLOBIN 14.6 GM/dL (11.7-16.9); LYMPH % 23.1 % (8-40); MCH 31.3 pg (25.7-33.7); MEAN CELL VOLUME 94.8 fl (80-96); MONO % 10.1 % (3.8-10.2); NEUT % 64.1 % (42.8-82.8); PLATELET COUNT 263 10^3/uL (134-434); RBC 4.66 M/mm3 (4.00-5.60); RDW 13.6 % (11.9-15.9); WHITE BLOOD COUNT 9.2 K/mm3 (4.0-10.0)
[2022-06-27 11:59] LABS: CALCIUM 9.6 mg/dL (8.5-10.1)
[2022-06-27 12:00] LABS: BLOOD UREA NITROGEN 5.4 mg/dL (7-18); MAGNESIUM 2.2 mg/dL (1.8-2.4)
[2022-06-27 12:03] LABS: BILIRUBIN,DIRECT 0.1 mg/dL (0.0-0.2); CREATININE 0.9 mg/dL (0.55-1.3)
[2022-06-27 12:05] LABS: BILIRUBIN,TOTAL 0.5 mg/dL (0.2-1); TOT PROT 7.8 g/dl (6.4-8.2)
[2022-06-27 15:01] VITALS: BP 97/69; PULSE 80; RESP 18; TEMP 98.1
== END 2022-06-27 11:55 | disposition home or self-care (01) ==
LOC: JONCCHEMO 10:00
PROVIDERS: ATTEND Internal Medicine Hematology & Oncology
PROC: 3E013GC Introduction of Other Therapeutic Substance into Subcutaneous Tissue, Percutaneous Approach (ICD-10-PCS; principal; 2022-06-27)
DX: Z76.89 Persons encountering health services in other specified circumstances (principal); C34.91 Malignant neoplasm of unspecified part of right bronchus or lung
CPT/HCPCS: 36415; 80048; 80076; 82378; 83735; 85025; 96372; J0897

== ENCOUNTER 2022-07-26 10:52 | Day surgery (SDC) | payer OTHER ==
[2022-07-26 11:26] LABS: BASO % 0.8 % (0-2.0); EOS % 2.1 % (0-4.5); HEMATOCRIT 38.6 % (35.4-49); HEMOGLOBIN 13.2 GM/dL (11.7-16.9); LYMPH % 16.8 % (8-40); MCH 31.4 pg (25.7-33.7); MCHC 34.1 g/dl (32.0-35.9); MEAN CELL VOLUME 91.9 fl (80-96); MEAN PLT VOLUME 7.1 fl (7.5-11.1); MONO % 11.3 % (3.8-10.2); PLATELET COUNT 295 10^3/uL (134-434); RDW 13.8 % (11.9-15.9); WHITE BLOOD COUNT 10.6 K/mm3 (4.0-10.0)
[2022-07-26 11:49] LABS: BLOOD UREA NITROGEN 10.1 mg/dL (7-18); CALCIUM 8.6 mg/dL (8.5-10.1); MAGNESIUM 2.1 mg/dL (1.8-2.4)
[2022-07-26 11:50] LABS: ALBUMIN 3.5 g/dl (3.4-5.0)
[2022-07-26 11:52] LABS: BILIRUBIN,DIRECT 0.1 mg/dL (0.0-0.2); CREATININE 0.8 mg/dL (0.55-1.3)
[2022-07-26 11:54] LABS: BILIRUBIN,TOTAL 0.6 mg/dL (0.2-1)
[2022-07-26 17:42] VITALS: BP 93/59; PULSE 75; RESP 18; TEMP 98.4
== END 2022-07-26 12:00 | disposition home or self-care (01) ==
LOC: JONCCHEMO 10:52
PROVIDERS: ATTEND Internal Medicine Hematology & Oncology
PROC: 3E013GC Introduction of Other Therapeutic Substance into Subcutaneous Tissue, Percutaneous Approach (ICD-10-PCS; principal; 2022-07-26)
DX: C34.91 Malignant neoplasm of unspecified part of right bronchus or lung (principal); Z76.89 Persons encountering health services in other specified circumstances
CPT/HCPCS: 36415; 80048; 80076; 82378; 83735; 85025; 96372; J0897

== ENCOUNTER 2022-08-23 10:39 | Day surgery (SDC) | payer OTHER ==
[2022-08-23 11:35] LABS: BASO % 0.5 % (0-2.0); EOS % 1.9 % (0-4.5); HEMATOCRIT 38.3 % (35.4-49); LYMPH % 16.4 % (8-40); MCHC 33.9 g/dl (32.0-35.9); MEAN CELL VOLUME 91.5 fl (80-96); MEAN PLT VOLUME 7.4 fl (7.5-11.1); MONO % 9.2 % (3.8-10.2); PLATELET COUNT 286 10^3/uL (134-434); RBC 4.19 M/mm3 (4.00-5.60); WHITE BLOOD COUNT 10.3 K/mm3 (4.0-10.0)
[2022-08-23 11:57] LABS: BLOOD UREA NITROGEN 7.2 mg/dL (7-18); CALCIUM 8.9 mg/dL (8.5-10.1)
[2022-08-23 11:58] LABS: ALBUMIN 3.4 g/dl (3.4-5.0)
[2022-08-23 12:01] LABS: BILIRUBIN,DIRECT 0.1 mg/dL (0.0-0.2); CREATININE 0.8 mg/dL (0.55-1.3)
[2022-08-23 12:02] LABS: BILIRUBIN,TOTAL 0.5 mg/dL (0.2-1); TOT PROT 7.2 g/dl (6.4-8.2)
[2022-08-23 16:52] VITALS: BP 112/72; PULSE 75; RESP 20; TEMP 98.6
== END 2022-08-23 11:30 | disposition home or self-care (01) ==
LOC: JONCCHEMO 10:39
PROVIDERS: ATTEND Internal Medicine Hematology & Oncology
PROC: 3E013GC Introduction of Other Therapeutic Substance into Subcutaneous Tissue, Percutaneous Approach (ICD-10-PCS; principal; 2022-08-23)
DX: C34.31 Malignant neoplasm of lower lobe, right bronchus or lung (principal); C79.51 Secondary malignant neoplasm of bone; Z76.89 Persons encountering health services in other specified circumstances
CPT/HCPCS: 36415; 80048; 80076; 82378; 83735; 85025; 96372; J0897

== ENCOUNTER 2022-09-20 10:15 | Day surgery (SDC) | payer OTHER ==
[~2022-09-20 10:15] MED LIST changes: +HEPATITIS B VIRUS VACCINE-PF 40 MCG/1 ML VIAL IM ONE
[2022-09-20 10:53] LABS: BASO % 0.6 % (0-2.0); EOS % 2.9 % (0-4.5); HEMATOCRIT 39.4 % (35.4-49); HEMOGLOBIN 13.3 GM/dL (11.7-16.9); LYMPH % 22.7 % (8-40); MCH 30.8 pg (25.7-33.7); MCHC 33.7 g/dl (32.0-35.9); MEAN CELL VOLUME 91.4 fl (80-96); MEAN PLT VOLUME 7.3 fl (7.5-11.1); MONO % 10.3 % (3.8-10.2); NEUT % 63.5 % (42.8-82.8); PLATELET COUNT 230 10^3/uL (134-434); RBC 4.31 M/mm3 (4.00-5.60); RDW 14.6 % (11.9-15.9); WHITE BLOOD COUNT 10.2 K/mm3 (4.0-10.0)
[2022-09-20 11:40] LABS: ALBUMIN 3.5 g/dl (3.4-5.0); BLOOD UREA NITROGEN 10.6 mg/dL (7-18); CALCIUM 8.8 mg/dL (8.5-10.1)
[2022-09-20 11:42] LABS: BILIRUBIN,DIRECT 0.1 mg/dL (0.0-0.2)
[2022-09-20 11:43] LABS: CREATININE 0.8 mg/dL (0.55-1.3)
[2022-09-20 11:44] LABS: BILIRUBIN,TOTAL 0.4 mg/dL (0.2-1); TOT PROT 7.2 g/dl (6.4-8.2)
[2022-09-20 16:29] VITALS: BP 106/71; PULSE 81; RESP 18; TEMP 98.3
== END 2022-09-20 11:35 | disposition home or self-care (01) ==
LOC: JONCCHEMO 10:15
PROVIDERS: ATTEND Internal Medicine Hematology & Oncology
PROC: 3E013GC Introduction of Other Therapeutic Substance into Subcutaneous Tissue, Percutaneous Approach (ICD-10-PCS; principal; 2022-09-20)
DX: C34.31 Malignant neoplasm of lower lobe, right bronchus or lung (principal); C79.51 Secondary malignant neoplasm of bone; Z76.89 Persons encountering health services in other specified circumstances
CPT/HCPCS: 36415; 80048; 80076; 82378; 83735; 85025; 96372; J0897

== ENCOUNTER 2022-10-19 11:07 | Day surgery (SDC) | payer OTHER ==
[~2022-10-19 11:07] MED LIST changes: -HEPATITIS B VIRUS VACCINE-PF 40 MCG/1 ML VIAL IM ONE
[2022-10-19 11:36] LABS: BASO % 0.9 % (0-2.0); EOS % 2.2 % (0-4.5); HEMATOCRIT 39.5 % (35.4-49); HEMOGLOBIN 14.1 GM/dL (11.7-16.9); LYMPH % 25.9 % (8-40); MCH 32.3 pg (25.7-33.7); MCHC 35.7 g/dl (32.0-35.9); MEAN CELL VOLUME 90.5 fl (80-96); MEAN PLT VOLUME 7.4 fl (7.5-11.1); MONO % 10.3 % (3.8-10.2); NEUT % 60.7 % (42.8-82.8); PLATELET COUNT 252 10^3/uL (134-434); RBC 4.36 M/mm3 (4.00-5.60); RDW 14.9 % (11.9-15.9); WHITE BLOOD COUNT 8.6 K/mm3 (4.0-10.0)
[2022-10-19 12:03] LABS: CALCIUM 9.2 mg/dL (8.5-10.1)
[2022-10-19 12:04] LABS: ALBUMIN 3.5 g/dl (3.4-5.0); BLOOD UREA NITROGEN 8.1 mg/dL (7-18); MAGNESIUM 2.1 mg/dL (1.8-2.4)
[2022-10-19 12:06] LABS: BILIRUBIN,DIRECT 0.1 mg/dL (0.0-0.2)
[2022-10-19 12:08] LABS: BILIRUBIN,TOTAL 0.3 mg/dL (0.2-1); CREATININE 0.8 mg/dL (0.55-1.3); TOT PROT 7.2 g/dl (6.4-8.2)
[2022-10-19 13:12] VITALS: BP 109/72; PULSE 87; RESP 20; TEMP 98.4
== END 2022-10-19 12:10 | disposition home or self-care (01) ==
LOC: JONCCHEMO 11:07
PROVIDERS: ATTEND Internal Medicine Hematology & Oncology
PROC: 3E013GC Introduction of Other Therapeutic Substance into Subcutaneous Tissue, Percutaneous Approach (ICD-10-PCS; principal; 2022-10-19)
DX: C34.31 Malignant neoplasm of lower lobe, right bronchus or lung (principal); C79.51 Secondary malignant neoplasm of bone
CPT/HCPCS: 36415; 80048; 80076; 82378; 83735; 85025; 87517; 96372; J0897

== ENCOUNTER 2022-11-15 11:18 | Day surgery (SDC) | payer OTHER ==
[2022-11-15 12:17] LABS: BASO % 0.7 % (0-2.0); EOS % 1.2 % (0-4.5); HEMATOCRIT 39.1 % (35.4-49); HEMOGLOBIN 13.6 GM/dL (11.7-16.9); LYMPH % 16.5 % (8-40); MCH 31.3 pg (25.7-33.7); MCHC 34.9 g/dl (32.0-35.9); MEAN CELL VOLUME 89.7 fl (80-96); MEAN PLT VOLUME 7.7 fl (7.5-11.1); NEUT % 70.6 % (42.8-82.8); PLATELET COUNT 285 10^3/uL (134-434); RBC 4.36 M/mm3 (4.00-5.60); RDW 14.7 % (11.9-15.9); WHITE BLOOD COUNT 10.2 K/mm3 (4.0-10.0)
[2022-11-15 12:44] LABS: POTASSIUM 4.1 mmol/L (3.5-5.1)
[2022-11-15 12:54] LABS: ALBUMIN 3.5 g/dl (3.4-5.0); MAGNESIUM 2.2 mg/dL (1.8-2.4)
[2022-11-15 12:56] LABS: BILIRUBIN,DIRECT 0.2 mg/dL (0.0-0.2)
[2022-11-15 12:57] LABS: CREATININE 0.7 mg/dL (0.55-1.3)
[2022-11-15 12:58] LABS: BILIRUBIN,TOTAL 0.6 mg/dL (0.2-1)
[2022-11-15 12:59] LABS: TOT PROT 7.4 g/dl (6.4-8.2)
[2022-11-15 16:18] VITALS: BP 107/83; PULSE 86; RESP 20; TEMP 97.9
== END 2022-11-15 12:15 | disposition home or self-care (01) ==
LOC: JONCCHEMO 11:18 → J7W 11:20 → JONCCHEMO 12:15
PROVIDERS: ATTEND Internal Medicine Hematology & Oncology
PROC: 3E013GC Introduction of Other Therapeutic Substance into Subcutaneous Tissue, Percutaneous Approach (ICD-10-PCS; principal; 2022-11-15)
DX: C34.30 Malignant neoplasm of lower lobe, unspecified bronchus or lung (principal); C79.31 Secondary malignant neoplasm of brain; C79.51 Secondary malignant neoplasm of bone
CPT/HCPCS: 36415; 80048; 80076; 82378; 83735; 85025; 96372; J0897

== ENCOUNTER 2024-01-19 04:25 | Day surgery (SDC) | payer OTHER ==
[2024-01-17 11:27] VITALS: BMI 19.9
[2024-01-19] MEDS: LIDOCAINE HCL 1% PRESERVATIVE FREE - 30ML VIAL IJ ONE
[2024-01-19] MEDS: BUPIVACAINE 0.75% IN DEXTROSE/PF 2ML AMPULE NR ONE
[2024-01-19] MEDS ORDERED: ACETAMINOPHEN 500 MG TABLET (FP) PO PRN (09:14)
[2024-01-19 14:06] VITALS: BP 97/65; PULSE 62; RESP 16; TEMP 98.4
== END 2024-01-19 14:50 | disposition home or self-care (01) ==
LOC: JASU-SURG 04:25
PROVIDERS: ATTEND Pain Medicine Pain Medicine
PROC: 3E0T33Z Introduction of Anti-inflammatory into Peripheral Nerves and Plexi, Percutaneous Approach (ICD-10-PCS; 2024-01-19)
PROC: 3E0T3BZ Introduction of Anesthetic Agent into Peripheral Nerves and Plexi, Percutaneous Approach (ICD-10-PCS; principal; 2024-01-19 12:45)
DX: M47.816 Spondylosis without myelopathy or radiculopathy, lumbar region (principal)
CPT/HCPCS: 76000-TC-FY